=== PATIENT | male | born 1965 | race African-American/Black ===

== ENCOUNTER 2024-04-12 03:15 | Observation (INO) ==
--- NOTE | 2024-04-12 03:41 | ED.PDOC ---
General ED Provider: Dr. MARCO FLORES MD Chief Complaint: Shortness of Air Stated Complaint: Shortness of breath Time Seen by Provider: 04/12/24 03:29 Information Source: Patient Nursing and Triage Documentation Reviewed and Agree: Yes What is Opioid Naive?: *Opioid Naive implies the patient is not already taking opioids or not chronically receiving opioids on a daily basis. *PRN dosing is not "usually" associated with tolerance. *Patients are at higher risk of over-sedation and aspiration. What is Opioid Tolerant?: *Opioid Tolerance implies less than the expected response to an opioid. *Acquired tolerance is defined by the patient taking 60mg of oral morphine daily (or equianalgesic dose of another opioid) for 1 week or more. *Often associated with chronic pain. *May take more than usual dose to achieve desired pain control. Respiratory Complaint Exam Shortness of Air Complaint/Exam Onset/Duration: Yesterday Symptoms Are: Still present Timing: Constant Initial Severity: Moderate Current Severity: Moderate Character: Reports Dyspnea at rest Aggravating: Reports URI Associated Signs and Symptoms: Reports Cough, Chest pain with cough and Nasal congestion Differential Diagnoses: Pneumonia, SARS, RSV and URI Review of Systems Review Of Systems Constitutional: Reports No symptoms Eyes: Reports No symptoms Ears, Nose, Mouth, Throat: Reports Nose discharge Respiratory: Reports Cough and Shortness of Breath Cardiac: Reports No symptoms GI: Reports Abdominal pain, Nausea and Vomiting : Reports No symptoms Musculoskeletal: Reports No symptoms Skin: Reports No symptoms Neurological: Reports Headache Endocrine: Reports No symptoms Hematologic/Lymphatic: Reports No symptoms All Other Systems: Reviewed and Negative Physical Exam Physical Exam Appearance: Reports Well-appearing, No pain distress and Well-nourished Ill-appearing: None Pain Distress: None ENT: Reports Nose normal and Oropharynx normal Respiratory: Reports Airway patent, Breath sounds clear, Breath sounds equal and Respirations nonlabored Cardiovascular: Reports RRR, No rub and No murmur GI/: Reports Soft, Nontender and Bowel sounds normal Musculoskeletal: Reports Not Examined Skin: Reports Warm, Dry and Normal color Neurological: Reports Sensation intact, Cranial nerves intact, Alert and Oriented Psychiatric: Reports Affect appropriate and Mood appropriate Course Course 04/12/24 03:40 04/12/24 03:40 Orders, Labs, Meds: Lab Review 04/12/24 04/12/24 03:40 04:00 WBC 7.89 RBC 4.85 Hgb 14.7 Hct 46.1 MCV 95.1 H MCH 30.3 MCHC 31.9 RDW Coeff of Xavier 12.0 Plt Count 146 Immature Gran % (Auto) 0.3 Neut % (Auto) 85.3 H Lymph % (Auto) 4.7 L Hayes % (Auto) 9.5 Eos % (Auto) 0.1 Baso % (Auto) 0.1 Neut # (Auto) 6.7 Lymph # (Auto) 0.4 L [place] # (Auto) 0.8 Eos # (Auto) 0.0 Baso # (Auto) 0.0 Immature Gran # (Auto) 0.0 Sodium 135.8 Potassium 4.04 Chloride 101.9 Carbon Dioxide 23.4 Anion Gap 14.54 BUN 12.4 Creatinine 1.18 H Estimated GFR (MDRD) 77.00 BUN/Creatinine Ratio 10.50 Glucose 113.5 H Calcium 9.01 Total Bilirubin 1.25 AST 45.8 ALT 26.7 Alkaline Phosphatase 81.4 Total Protein 8.22 H Albumin 4.51 Globulin 3.71 Albumin/Globulin Ratio 1.21 Lipase 45.3 Urine Color Yellow Urine Clarity Clear Urine pH 5.5 Ur Specific [place] >=1.030 Urine Protein 2+ H Urine Glucose (UA) Negative Urine Ketones 1+ H Urine Blood 3+ H Urine Nitrite Negative Urine Bilirubin 1+ H Urine Urobilinogen 1.0 H Ur Leukocyte Esterase Negative Urine Microscopic RBC 5-10 Urine Microscopic WBC 0-2 Ur Squamous Epith Cells 0-2 Ur Transition Epith Cell 0-2 Urine Mucus 2+ Influ A Molecular Assay Positive by naat H Influ B Molecular Assay Negative by naat RSV Antigen Negative by naat SARS CoV-2 RNA Rapid KERI Negative Orders Category Date Time Status CBC W/ AUTO DIFF Stat LAB 04/12/24 03:40 Completed CMP [COMPREHENSIVE METABOLIC PANEL] Stat LAB 04/12/24 03:40 Completed COVID [SARS COV-2 RNA RAPID KERI] Stat LAB 04/12/24 03:40 Completed FLU A/B MOLECULAR Stat LAB 04/12/24 03:40 Completed LIPASE Stat LAB 04/12/24 03:40 Completed RSV Stat LAB 04/12/24 03:40 Completed URINALYSIS C & S IF INDICATED Stat LAB 04/12/24 04:00 Completed Ketorolac Tromethamine [Toradol] Meds 04/12/24 03:34 Discontinued 30 mg IM ONCE STA Ondansetron [Zofran Odt] Meds 04/12/24 03:34 Discontinued 4 mg PO ONCE STA CHEST, 1V AP ONLY Stat RADS 04/12/24 03:35 Completed Medications Discontinued Medications Generic Name Dose Route Start Last Admin Trade Name Aleksanderq PRN Reason Stop Dose Admin Ketorolac Tromethamine 30 mg 04/12/24 03:34 04/12/24 03:46 Ketorolac Tromethamine 30 Mg/Ml Vial IM 04/12/24 03:35 30 mg ONCE STA Administration Ondansetron HCl 4 mg 04/12/24 03:34 04/12/24 03:46 Ondansetron Hcl 4 Mg Tab.Rapdis PO 04/12/24 03:35 4 mg ONCE STA Administration Vital Signs: Temp Pulse Resp BP Pulse Ox O2 Flow Rate 04/12/24 03:31 2 04/12/24 03:17 98.5 F 107 H 19 161/109 H 93 L Discharge Plan Discharge Patient Disposition: ADMITTED INPATIENT Discharge Problem: Influenza A, Shortness of breath, Hypoxemia Did you review [place] BREAKFAST ATTENDANT for ALL controlled substances?: Not Applicable ED Provider: MARCO FLORES Condition: Stable Physician Progress Note: Patient here complaining of nausea vomiting, back pain, abdominal pain, productive cough, nasal congestion, headache and chest pressure from cough since yesterday. He took no medication. I ordered chest x-ray, COVID/influenza A/B/RSV swabs and CBC, CMP and lipase. I ordered IM Toradol for his back pain and Zofran for his nausea. Patient is positive for influenza A. Radiologist interpretation of chest x-ray follows: EXAM: PORTABLE CHEST HISTORY: Shortness of breath COMPARISON: Two-view chest 09/23/2023 FINDINGS: The cardiomediastinal silhouette is stable. The lungs are clear bilaterally. There are no acute osseous abnormalities. IMPRESSION:No evidence of active pulmonary disease or interval change Hey this is Dr. Flores in the ER I am a 59-year-old who came in with shortness of breath he tested positive for influenza A Patient is satting 88% on room air. He is on 2 L oxygen. I spoke to hospitalist and she agreed to admit him for observation. I reviewed results with patient and explained that he is being admitted to the hospital.
[2024-04-12] MEDS: ZOFRAN ODT PO STA (03:46)
[2024-04-12] MEDS: TORADOL IM STA (03:46)
[2024-04-12 03:49] LABS: BASOPHILS % (AUTO) 0.1 % (0.0-3.0); EOSINOPHILS % (AUTO) 0.1 % (0.0-7.0); HEMATOCRIT 46.1 % (42.0-52.0); HEMOGLOBIN 14.7 g/dl (14.0-18.0); IMMATURE GRANULOCYTE % (AUTO) 0.3 % (0.0-5.0); LYMPHOCYTES # (AUTO) 0.4 K/uL (0.60-3.4); LYMPHOCYTES % (AUTO) 4.7 (10.0-50.0); MEAN CORPUSCULAR HEMOGLOBIN 30.3 pg (27.0-31.0); MEAN CORPUSCULAR HGB CONC 31.9 (31.8-35.4); MEAN CORPUSCULAR VOLUME 95.1 fl (80.0-94.0); MONOCYTES # (AUTO) 0.8 K/uL (0.4-2.0); MONOCYTES % (AUTO) 9.5 (0-10); NEUTROPHILS # (AUTO) 6.7 K/ul (2.0-6.9); NEUTROPHILS % (AUTO) 85.3 % (42.2-75.2); PLATELET COUNT 146 10^3/uL (140-440); RED BLOOD COUNT 4.85 10^6/ul (4.70-6.10); WHITE BLOOD COUNT 7.89 K/ul (4.2-10.2)
[2024-04-12 04:01] LABS: ALANINE AMINOTRANSFERASE 26.7 U/L (0-50); ALBUMIN 4.51 g/dL (3.5-5.0); ALKALINE PHOSPHATASE 81.4 U/L (56-119); ASPARTATE AMINO TRANSFERASE 45.8 U/L (17-59); BILIRUBIN,TOTAL 1.25 mg/dL (0.2-1.3); BLOOD UREA NITROGEN 12.4 mg/dL (9-20); CALCIUM 9.01 mg/dL (8.4-10.2); CARBON DIOXIDE 23.4 mmol/L (22-30.0); CHLORIDE 101.9 mmol/L (98-107); CREATININE 1.18 mg/dL (0.60-1.10); GLUCOSE 113.5 mg/dL (74-106); LIPASE 45.3 U/L (23-300); POTASSIUM 4.04 mmol/L (3.5-5.1); SODIUM 135.8 mmol/L (134.5-145); TOTAL PROTEIN 8.22 g/dL (6.3-8.2)
[2024-04-12 04:11] LABS: BILIRUBIN,URINE 1+ (NEGATIVE); CLARITY,URINE Clear (CLEAR); COLOR,URINE Yellow (YELLOW); GLUCOSE, URINE (UA) Negative (NEGATIVE); KETONES,URINE 1+ (NEGATIVE); LEUKOCYTE ESTERASE ,URINE Negative (NEGATIVE); NITRITE,URINE Negative (NEGATIVE); PH,URINE 5.5 (5-9); PROTEIN,URINE 2+ (NEGATIVE); URINE, BLOOD 3+ (NEGATIVE)
[2024-04-12 04:12] LABS: MOLECULAR FLU A POSITIVE BY NAAT (NEGATIVE); MOLECULAR FLU B NEGATIVE BY NAAT (NEGATIVE); RSV MOLECULAR NEGATIVE BY NAAT (NEGATIVE); SARS COV-2 RNA RAPID NAAT NEGATIVE (NEGATIVE)
--- NOTE | 2024-04-12 04:17 | DI ---
EXAM: PORTABLE CHEST HISTORY: Shortness of breath COMPARISON: Two-view chest 09/23/2023 FINDINGS: The cardiomediastinal silhouette is stable. The lungs are clear bilaterally. There are n o acute osseous abnormalities. IMPRESSION: No evidence of active pulmonary disease or interval change
[2024-04-12 04:18] LABS: SQUAMOUS EPITHELIAL CELL,UR 0-2 (0-5); TRANSITIONAL EPI CELLS,URINE 0-2 (NOT PRESENT); URINE WBC, MICROSCOPIC 0-2 (0-2)
[2024-04-12 04:19] LABS: MUCUS,URINE 2+ (NOT PRESENT)
[2024-04-12] MEDS ORDERED: TYLENOL PO PRN (04:28)
[2024-04-12] MEDS: TAMIFLU CAPSULE PO ONE (04:38)
[2024-04-12 06:04] VITALS: BMI 21.4
[2024-04-12 09:12] LABS: CREATINE KINASE 680.1 U/L (55-170)
[2024-04-12 09:27] LABS: CREATINE KINASE MB 1.75 ng/ml (0.0-2.38)
[2024-04-12] MEDS ORDERED: ZOFRAN SDV IVP PRN (10:37)
--- NOTE | 2024-04-12 10:41 | PCM ---
Date of Service Date Seen by Provider: 04/12/24 Time Seen by Provider: 08:40 Admit Day/Time Admission Date: 04/12/24 Admission Time: 04:28 Reason for Admission Chief Complaint: INFLUENZA A, HYPOXEMIA Hospital Provider Hospital Provider: JUVE COWART PA-C, [facility] Primary Care Physician Primary Care Physician: None History of Present Illness History of Present Illness: Patient is a 59 year old smoker with no pcp who presented to ER with cc of sob and cough. Patient denies n/v/d, chest pain. States he started feeling bad yesterday. Tested positive for influenza A in ER. Was noted to be 88% on RA and was placed on 2L. CXR negative. Given tamiflu. Admitted to med surg. Case Discussed With Case Discussed With: Patient's case was discussed with the ER Physicians, Dr. Cali. [facility] Medical History COPD (chronic obstructive pulmonary disease) J44.9 - Chronic obstructive pulmonary disease, unspecified (ICD-10) Family History Mother CAD (coronary artery disease) of artery bypass graft Diabetes FATHER Prostate cancer Colon cancer Social History Smoking and tobacco status: Current every day smoker Tobacco: How many years used: 46 Quit status: not considering quitting Alcohol intake: current Alcohol intake frequency: a few times a month Details: Social and infrequent Substance use type: does not use Lives independently: Yes Number of children: 1 (daughter, lives in [place]) Allergies Allergies Allergy/AdvReac Type Severity Reaction Status Date / Time No Known Allergies Allergy Verified 04/12/24 03:21 Current Medications Home Medications 1 [No Reported Medications] 04/12/24 [History Confirmed 04/12/24 Last Taken Unknown] Home Acetaminophen (Acetaminophen 325 Mg Tablet) 650 mg PO Q4H PRN PRN Reason: Mild Pain Albuterol/Ipratropium (Ipratropium/Albuterol Vial.Neb) 3 ml NEB RTQ6H LOLIS Enoxaparin Sodium (Enoxaparin Sodium 40 Mg/0.4 Ml Syr) 40 mg SUBCUT DAILY LOLIS Ondansetron HCl (Ondansetron Hcl/Pf 4 Mg/2 Ml Sdv) 4 mg IVP Q6H PRN PRN Reason: Nausea / Vomiting Oseltamivir Phosphate (Oseltamivir Phosphate 75 Mg Capsule) 75 mg PO Q12HR [facility] Stop: 04/16/24 21:01 Discontinued Medications Ketorolac Tromethamine (Ketorolac Tromethamine 30 Mg/Ml Vial) 30 mg IM ONCE STA Stop: 04/12/24 03:35 Last Admin: 04/12/24 03:46 Dose: 30 mg Ondansetron HCl (Ondansetron Hcl 4 Mg Tab.Rapdis) 4 mg PO ONCE STA Stop: 04/12/24 03:35 Last Admin: 04/12/24 03:46 Dose: 4 mg Oseltamivir Phosphate (Oseltamivir Phosphate 75 Mg Capsule) 75 mg PO ONCE ONE Stop: 04/12/24 04:29 Last Admin: 04/12/24 04:38 Dose: 75 mg Opioid Naive vs. Tolerant Does Patient Take Opioids?: No Is Patient Opioid Naive?: Yes What is Opioid Naive?: *Opioid Naive implies the patient is not already taking opioids or not chron ically receiving opioids on a daily basis. *PRN dosing is not "usually" associated with tolerance. *Patients are at higher risk of over-sedation and aspiration. Is Patient Opioid Tolerant?: No What is Opioid Tolerant?: *Opioid Tolerance implies less than the expected response to an opioid. *Acquired tolerance is defined by the patient taking 60mg of oral morphine daily (or equianalgesic dose of another opioid) for 1 week or more. *Often associated with chronic pain. *May take more than usual dose to achieve desired pain control. Review of Systems Constitutional: Reports Fatigue; Denies Fever Head: Reports Normocephalic and Atraumatic Throat: Denies Sore Throat Cardiovascular: Denies Chest pain, Chest Pressure or Edema Respiratory: Reports Cough and Shortness of air Gastrointestinal: Denies Nausea, Vomiting, Diarrhea, Abdominal pain or Melena Genitourinary: Denies Dysuria or Hematuria Dermatologic: Reports Skin Changes (+RLE with scaling area on anterior martínez, x25-30 yrs per patient ) Neurological: Denies Headache, Dizziness or Syncope Physical examination Most Recent Vital Signs: Most Recent Vital Signs Temperature 99.1 F 04/12/24 05:05 Temperature Source Temporal Artery Scan 04/12/24 05:05 Temperature Source Infrared 04/12/24 03:17 Pulse Rate 98 04/12/24 05:05 Respiratory Rate 20 04/12/24 05:05 Blood Pressure 161/109 H 04/12/24 03:17 Blood Pressure Right Arm 95/75 04/12/24 05:05 Blood Pressure Position Supine 04/12/24 05:05 O2 Sat by Pulse Oximetry 91 L 04/12/24 05:05 Oxygen Delivery Method Nasal Cannula 04/12/24 09:56 Oxygen Flow Rate 2 04/12/24 05:05 Height 5 ft 10 in 04/12/24 05:05 Weight 68 kg 04/12/24 05:05 Telemetry Type Remote Telemetry 04/12/24 07:00 Telemetry Monitoring Continues 04/12/24 07:00 Telemetry Heart Rate 100 04/12/24 07:00 Telemetry SPO2 92 L 04/12/24 07:00 EKG [place] Interval 0.16 04/12/24 07:00 EKG QRS Interval 0.08 04/12/24 07:00 Telemetry Strip Reading NS 04/12/24 07:00 Appearance: Positive No Apparent Distress and Alert and Oriented x3 Skin: Positive [place], Warm, Good Turgor and Good Color HEENT: Positive Normocephalic and Atraumatic Neck: Positive Supple and Midline Trachea Chest/Lungs: Positive Clear to Auscultation Bilaterally; Negative Rales, Rhonci or Wheezes Heart: Positive RRR GI/: Positive Soft, Nontender, Bowel Sounds Normal and No Distention Extremities: Negative Edema Neurological: Positive Cranial Nerves Intact, Alert, Oriented and Muscle Strength 5/5 in Upper and Lower Extremities Bilaterally Psychiatric: Positive Oriented x4, Appropriate Mood and Appropriate Affect Labs This Visit Labs This Visit: Labs This Visit 04/12/24 04/12/24 03:40 04:00 WBC 7.89 RBC 4.85 Hgb 14.7 Hct 46.1 MCV 95.1 H MCH 30.3 MCHC 31.9 RDW Coeff of Xavier 12.0 Plt Count 146 Immature Gran % (Auto) 0.3 Neut % (Auto) 85.3 H Lymph % (Auto) 4.7 L [place] % (Auto) 9.5 Eos % (Auto) 0.1 Baso % (Auto) 0.1 Neut # (Auto) 6.7 Lymph # (Auto) 0.4 L [place] # (Auto) 0.8 Eos # (Auto) 0.0 Baso # (Auto) 0.0 Immature Gran # (Auto) 0.0 Sodium 135.8 Potassium 4.04 Chloride 101.9 Carbon Dioxide 23.4 Anion Gap 14.54 BUN 12.4 Creatinine 1.18 H Estimated GFR (MDRD) 77.00 BUN/Creatinine Ratio 10.50 Glucose 113.5 H Calcium 9.01 Total Bilirubin 1.25 AST 45.8 ALT 26.7 Alkaline Phosphatase 81.4 Total Creatine Kinase 680.1 H CK-MB (CK-2) 1.750 CK-MB (CK-2) % 0.2500 Total Protein 8.22 H Albumin 4.51 Globulin 3.71 Albumin/Globulin Ratio 1.21 Lipase 45.3 Urine Color Yellow Urine Clarity Clear Urine pH 5.5 Ur Specific [place] >=1.030 Urine Protein 2+ H Urine Glucose (UA) Negative Urine Ketones 1+ H Urine Blood 3+ H Urine Nitrite Negative Urine Bilirubin 1+ H Urine Urobilinogen 1.0 H Ur Leukocyte Esterase Negative Urine Microscopic RBC 5-10 Urine Microscopic WBC 0-2 Ur Squamous Epith Cells 0-2 Ur Transition Epith Cell 0-2 Urine Mucus 2+ Influ A Molecular Assay Positive by naat H Influ B Molecular Assay Negative by naat RSV Antigen Negative by naat SARS CoV-2 RNA Rapid KERI Negative Imaging Imaging: EXAM: PORTABLE CHEST HISTORY: Shortness of breath COMPARISON: Two-view chest 09/23/2023 FINDINGS: The cardiomediastinal silhouette is stable. The lungs are clear bilaterally. There are no acute osseous abnormalities. IMPRESSION: No evidence of active pulmonary disease or interval change Review Statement Review Statement: I have independently reviewed and interpreted the labs/EKGs/imaging that were ordered by the ER provider. I have reviewed all outside records that are available currently in our EMR including imaging/notes/labs from previous visits. Plan Plan: 1. Acute hypoxic respiratory failure in setting of influenza A- duonebs, conservative measures, wean O2 when able 2. Influenza A - within window for tamiflu, O2, conservative measures, isolation 3. Hematuria - 3+ blood on UA with a few RBCs. CPK mildly elevated but no overt rhabdo. Pt would benefit from pcp follow up to recheck. Due to being a smoker, need to follow up on hematuria. 4. Smoker - counseled. Declines patch. DVT Prophylaxis: Lovenox Time Spent: Greater than 80 minutes spent with patient, 50% of the time spent with this patient was devoted to counseling and coordination of care. [facility] minutes spent discussing advance care planning. Smoking Cessation: 3 minutes spent discussing smoking cessation. Admit to: Obs Discussed Plan of Care with Dr. Alan Dougherty. Medications Medication Orders: Medications Ordered Category Date Time Status Acetaminophen [Tylenol] Meds 04/12/24 10:37 Ordered 650 mg PO Q4H PRN Enoxaparin Sodium [Lovenox] Meds 04/13/24 09:00 Ordered 40 mg SUBCUT DAILY Ondansetron HCl/Pf [Zofran Sdv] Meds 04/12/24 10:37 Ordered 4 mg IVP Q6H PRN Oseltamivir Phosphate Capsule [Tamiflu Capsule] Meds 04/12/24 21:00 Ordered 75 mg PO Q12HR
[2024-04-12] MEDS: TUMS CHEWABLE PO PRN (11:18)
[2024-04-12] MEDS: MUCINEX PO SCH (12:30)
[2024-04-12] MEDS: TESSALON PERLES PO PRN (12:31)
[2024-04-12] MEDS: DUONEB NEB SCH (12:41)
[2024-04-12] MEDS: TYLENOL PO PRN (15:08)
[2024-04-12] MEDS: TAMIFLU CAPSULE PO SCH (20:47)
[2024-04-12] MEDS: TORADOL IVP ONE (21:02)
[2024-04-12] MEDS: BENADRYL PO ONE (22:37)
[2024-04-12] MEDS: SOLU-MEDROL 40 MG IVP ONE (22:38)
[2024-04-12] MEDS: LACTATED RINGERS 1,000 ML IV SCH (22:46)
[2024-04-13 06:22] LABS: BASOPHILS % (AUTO) 0.2 % (0.0-3.0); EOSINOPHILS % (AUTO) 0.2 % (0.0-7.0); HEMATOCRIT 46.9 % (42.0-52.0); HEMOGLOBIN 14.9 g/dl (14.0-18.0); IMMATURE GRANULOCYTE % (AUTO) 0.3 % (0.0-5.0); LYMPHOCYTES # (AUTO) 0.3 K/uL (0.60-3.4); LYMPHOCYTES % (AUTO) 4.6 (10.0-50.0); MEAN CORPUSCULAR HEMOGLOBIN 30.5 pg (27.0-31.0); MEAN CORPUSCULAR HGB CONC 31.8 (31.8-35.4); MEAN CORPUSCULAR VOLUME 95.9 fl (80.0-94.0); MONOCYTES # (AUTO) 0.1 K/uL (0.4-2.0); MONOCYTES % (AUTO) 1.9 (0-10); NEUTROPHILS % (AUTO) 92.8 % (42.2-75.2); PLATELET COUNT 132 10^3/uL (140-440); RDW COEFFICIENT OF VARIATION 12.2 % (11.6-14.8); RED BLOOD COUNT 4.89 10^6/ul (4.70-6.10); WHITE BLOOD COUNT 6.46 K/ul (4.2-10.2)
[2024-04-13 06:37] LABS: ALANINE AMINOTRANSFERASE 27.8 U/L (0-50); ALBUMIN 4.07 g/dL (3.5-5.0); ALKALINE PHOSPHATASE 64.3 U/L (56-119); ASPARTATE AMINO TRANSFERASE 68.1 U/L (17-59); BILIRUBIN,TOTAL 0.71 mg/dL (0.2-1.3); BLOOD UREA NITROGEN 19.4 mg/dL (9-20); CALCIUM 8.51 mg/dL (8.4-10.2); CARBON DIOXIDE 22.1 mmol/L (22-30.0); CHLORIDE 101.6 mmol/L (98-107); CREATININE 1.01 mg/dL (0.60-1.10); GLUCOSE 166.7 mg/dL (74-106); POTASSIUM 4.53 mmol/L (3.5-5.1); SODIUM 132.4 mmol/L (134.5-145); TOTAL PROTEIN 7.67 g/dL (6.3-8.2)
[2024-04-13] MEDS: TORADOL IM ONE (07:12)
[2024-04-13] MEDS: LOVENOX SUBCUT SCH (08:58)
--- NOTE | 2024-04-13 09:42 | PCM.PROG ---
Date/Time Seen Date Seen by Provider: 04/13/24 Provider Provider[facility] Johnson [facility] Chief Complaint Chief Complaint: INFLUENZA A, HYPOXEMIA Subjective Subjective: Developed itching and welts last night. New medications inclue toradol, mucinex, and tamiflu. No reported allergies. Patient states he is aching all over and doesn't feel better. RNs attempted to wean oxygen this am and sat dropped down into 80s on RA. Has not had BM in 3-4 days per patient and requesting medication. Objective Appearance: Positive No Apparent Distress, Alert and Oriented x3, Ill-Appearing and Thin Chest/Lungs: Positive Symmetrical With Equal Breath Sounds, Clear to Auscultation Bilaterally and Good Air Movement all 4 Lung Hannah Heart: Positive RRR and Pulses Normal GI/: Positive Soft, Nontender and Bowel Sounds Normal Musculoskeletal: Positive Not Examined Neurological: Positive Sensation Intact, Motor intact, Alert, Oriented and Other (generalized weakness) Vital Signs Vital Signs: Vital Signs: Last 24 Hours 04/12/24 09:56 04/12/24 10:00 04/12/24 11:00 Temperature 99.7 F Temperature Source Temporal Artery Scan Pulse Rate 90 Respiratory Rate 28 H Blood Pressure 133/95 H Blood Pressure Mean 107 Blood Pressure Location Left Arm Blood Pressure Position Supine O2 Sat by Pulse Oximetry 95 Oxygen Delivery Method Nasal Cannula Nasal Cannula Nasal Cannula Oxygen Flow Rate 2 Telemetry Type Telemetry Monitoring Telemetry Heart Rate EKG TX Interval EKG QRS Interval Telemetry Strip Reading 04/12/24 12:00 04/12/24 13:00 04/12/24 13:00 Temperature Temperature Source Pulse Rate Respiratory Rate Blood Pressure Blood Pressure Mean Blood Pressure Location Blood Pressure Position O2 Sat by Pulse Oximetry Oxygen Delivery Method Nasal Cannula Nasal Cannula Oxygen Flow Rate Telemetry Type Remote Telemetry Telemetry Monitoring Continues Telemetry Heart Rate 123 H EKG TX Interval 0.16 EKG QRS Interval 0.[address] 04/12/24 14:00 04/12/24 14:00 04/12/24 14:58 Temperature 102.1 F H Temperature Source Temporal Artery Scan Pulse Rate 101 H Respiratory Rate 24 H Blood Pressure 124/77 Blood Pressure Mean 92 Blood Pressure Location Right Arm Blood Pressure Position Supine O2 Sat by Pulse Oximetry 94 L Oxygen Delivery Method Nasal Cannula Nasal Cannula Nasal Cannula Oxygen Flow Rate 2 Telemetry Type Telemetry Monitoring Telemetry Heart Rate EKG TX Interval EKG QRS Interval Telemetry Strip Reading 04/12/24 16:00 04/12/24 16:24 04/12/24 17:00 Temperature Temperature Source Pulse Rate Respiratory Rate Blood Pressure Blood Pressure Mean Blood Pressure Location Blood Pressure Position O2 Sat by Pulse Oximetry 97 Oxygen Delivery Method Nasal Cannula Nasal Cannula Nasal Cannula Oxygen Flow Rate 2 Telemetry Type Telemetry Monitoring Telemetry Heart Rate EKG TX Interval EKG QRS Interval Telemetry Strip Reading 04/12/24 18:00 04/12/24 18:00 04/12/24 19:00 Temperature 100.7 F H Temperature Source Temporal Artery Scan Pulse Rate 89 Respiratory Rate 22 H Blood Pressure 122/86 Blood Pressure Mean 98 Blood Pressure Location Right Arm Blood Pressure Position Supine O2 Sat by Pulse Oximetry 93 L Oxygen Delivery Method Nasal Cannula Nasal Cannula Nasal Cannula Oxygen Flow Rate 2 Telemetry Type Telemetry Monitoring Telemetry Heart Rate EKG TX Interval EKG QRS Interval Telemetry Strip Reading 04/12/24 19:00 04/12/24 19:15 04/12/24 19:36 Temperature Temperature Source Pulse Rate Respiratory Rate Blood Pressure Blood Pressure Mean Blood Pressure Location Blood Pressure Position O2 Sat by Pulse Oximetry Oxygen Delivery Method Nasal Cannula Nasal Cannula Oxygen Flow Rate 2 Telemetry Type Remote Telemetry Telemetry Monitoring Continues Telemetry Heart Rate 90 EKG TX Interval 0.14 EKG QRS Interval 0.08 Telemetry Strip Reading NSR/pac's 04/12/24 19:58 04/12/24 20:00 04/12/24 21:17 Temperature 100.5 F H Temperature Source Tympanic Pulse Rate 97 Respiratory Rate 18 Blood Pressure 129/81 Blood Pressure Mean 97 Blood Pressure Location Left Arm Blood Pressure Position Supine O2 Sat by Pulse Oximetry 93 L Oxygen Delivery Method Nasal Cannula Room Air Nasal Cannula Oxygen Flow Rate Telemetry Type Telemetry Monitoring Telemetry Heart Rate EKG TX Interval EKG QRS Interval Telemetry Strip Reading 04/12/24 22:00 04/12/24 23:00 04/13/24 00:00 Temperature Temperature Source Pulse Rate Respiratory Rate Blood Pressure Blood Pressure Mean Blood Pressure Location Blood Pressure Position O2 Sat by Pulse Oximetry Oxygen Delivery Method Nasal Cannula Nasal Cannula Nasal Cannula Oxygen Flow Rate Telemetry Type Telemetry Monitoring Telemetry Heart Rate EKG TX Interval EKG QRS Interval Telemetry Strip Reading 04/13/24 00:58 04/13/24 01:00 04/13/24 02:00 Temperature Temperature Source Pulse Rate Respiratory Rate Blood Pressure Blood Pressure Mean Blood Pressure Location Blood Pressure Position O2 Sat by Pulse Oximetry Oxygen Delivery Method Nasal Cannula Nasal Cannula Oxygen Flow Rate Telemetry Type Remote Telemetry Telemetry Monitoring Continues Telemetry Heart Rate 86 EKG TX Interval 0.16 EKG QRS Interval 0.08 Telemetry Strip Reading NSR 04/13/24 02:00 04/13/24 03:00 04/13/24 04:00 Temperature 99.2 F Temperature Source Tympanic Pulse Rate 83 Respiratory Rate 17 Blood Pressure 127/73 Blood Pressure Mean 91 Blood Pressure Location Left Arm Blood Pressure Position Supine O2 Sat by Pulse Oximetry 92 L Oxygen Delivery Method Nasal Cannula Nasal Cannula Nasal Cannula Oxygen Flow Rate Telemetry Type Telemetry Monitoring Telemetry Heart Rate EKG TX Interval EKG QRS Interval Telemetry Strip Reading 04/13/24 05:00 04/13/24 05:26 04/13/24 05:27 Temperature 99.3 F Temperature Source Temporal Artery Scan Pulse Rate 86 Respiratory Rate 16 Blood Pressure 111/63 Blood Pressure Mean 79 Blood Pressure Location Left Arm Blood Pressure Position Supine O2 Sat by Pulse Oximetry 95 Oxygen Delivery Method Nasal Cannula Nasal Cannula Nasal Cannula Oxygen Flow Rate 1 2 Telemetry Type Telemetry Monitoring Telemetry Heart Rate EKG TX Interval EKG QRS Interval Telemetry Strip Reading 04/13/24 06:00 04/13/24 07:00 04/13/24 07:00 Temperature Temperature Source Pulse Rate Respiratory Rate Blood Pressure Blood Pressure Mean Blood Pressure Location Blood Pressure Position O2 Sat by Pulse Oximetry Oxygen Delivery Method Nasal Cannula Nasal Cannula Oxygen Flow Rate Telemetry Type Remote Telemetry Telemetry Monitoring Continues Telemetry Heart Rate 85 EKG TX Interval 0.16 EKG QRS Interval 0.06 Telemetry Strip Reading sr 04/13/24 08:00 Temperature Temperature Source Pulse Rate Respiratory Rate Blood Pressure Blood Pressure Mean Blood Pressure Location Blood Pressure Position O2 Sat by Pulse Oximetry Oxygen Delivery Method Nasal Cannula Oxygen Flow Rate Telemetry Type Telemetry Monitoring Telemetry Heart Rate EKG TX Interval EKG QRS Interval Telemetry Strip Reading Lab Results Lab Results: Lab Results: Last 24 Hours 04/13/24 06:14 WBC 6.46 RBC 4.89 Hgb 14.9 Hct 46.9 MCV 95.9 H MCH 30.5 MCHC 31.8 RDW Coeff of Xavier 12.2 Plt Count 132 L Immature Gran % (Auto) 0.3 Neut % (Auto) 92.8 H Lymph % (Auto) 4.6 L [place] % (Auto) 1.9 Eos % (Auto) 0.2 Baso % (Auto) 0.2 Neut # (Auto) 6.0 Lymph # (Auto) 0.3 L [place] # (Auto) 0.1 L Eos # (Auto) 0.0 Baso # (Auto) 0.0 Immature Gran # (Auto) 0.0 Sodium 132.4 L Potassium 4.53 Chloride 101.6 Carbon Dioxide 22.1 Anion Gap 13.23 BUN 19.4 Creatinine 1.01 Estimated GFR (MDRD) 92.00 BUN/Creatinine Ratio 19.20 Glucose 166.7 H Calcium 8.51 Total Bilirubin 0.71 AST 68.1 H ALT 27.8 Alkaline Phosphatase 64.3 Total Protein 7.67 Albumin 4.07 Globulin 3.60 Albumin/Globulin Ratio 1.13 Additional Comments Additional Comments: I have independently reviewed and interpreted the labs/EKGs/imaging ordered during this hospital stay. I have reviewed outside records that are available in our EMR that pertain to medical stay including imaging/notes/labs from previous visits. Active Medications Active Medications: Medications Generic Name Dose Route Start Last Admin Trade Name Freq PRN Reason Stop Dose Admin Acetaminophen 650 mg 04/12/24 10:37 04/12/24 15:08 Acetaminophen 325 Mg Tablet PO 650 mg Q4H PRN Administration Mild Pain Albuterol/Ipratropium 3 ml 04/12/24 12:00 04/13/24 05:36 Ipratropium/Albuterol Vial.Neb NEB Not Given RTQ6H LOLIS Benzonatate 100 mg 04/12/24 11:53 04/12/24 12:31 Benzonatate 100 Mg Capsule PO 100 mg TID PRN Administration Cough Calcium Carbonate/Glycine 1,000 mg 04/12/24 10:59 04/12/24 11:18 Calcium Carbonate 500 Mg Tab.Chew PO 1,000 mg Q6H PRN Administration Heartburn Enoxaparin Sodium 40 mg 04/13/24 09:00 04/13/24 08:58 Enoxaparin Sodium 40 Mg/0.4 Ml Syr SUBCUT Not Given DAILY LOLIS Guaifenesin 600 mg 04/12/24 11:55 04/12/24 20:47 Guaifenesin 600 Mg Tablet.Er PO 600 mg Q12HR LOLIS Administration Lactated Ringer's 1,000 mls @ 75 mls/hr 04/12/24 23:00 04/12/24 22:46 Lactated Ringers IV 75 mls/hr .[id number] LOLIS Administration Ondansetron HCl 4 mg 04/12/24 10:37 Ondansetron Hcl/Pf 4 Mg/2 Ml Sdv IVP Q6H PRN Nausea / Vomiting Oseltamivir Phosphate 75 mg 04/12/24 21:00 04/12/24 20:47 Oseltamivir Phosphate 75 Mg Capsule PO 75 mg Q12HR LOLIS Administration Plan Plan: 1. Acute hypoxic respiratory failure in setting of influenza A - duonebs, cons ervative measures, wean O2 when able 2. Influenza A - stopped tamiflu due to allergic rxn, O2, conservative measures, isolation 3. Hematuria - 3+ blood on UA with a few RBCs. CPK mildly elevated but no overt rhabdo. Pt would benefit from pcp follow up to recheck. Due to being a smoker, need to follow up on hematuria. 4. Smoker - counseled. Declines patch. DVT Prophylaxis: Lovenox Review Statement Review Statement: I have personally discussed and reviewed the patient's visit/currently labs/imaging/decision making with Dr. Dougherty, my supervising attending. Greater that 50 minutes spent with patient, 50% of the time spent with this patient was devoted to counseling and coordination of care.
[2024-04-13] MEDS: COLACE PO PRN (13:54)
[2024-04-13] MEDS: DULCOLAX PO PRN (13:54)
[2024-04-13] MEDS: MIRALAX PO PRN (13:55)
[2024-04-13] MEDS: PEPCID IVP ONE (20:53)
[2024-04-13] MEDS: ATARAX PO PRN (20:54)
[2024-04-13] MEDS: PREDNISONE PO SCH (20:55)
[2024-04-14 06:06] LABS: BASOPHILS % (AUTO) 0.4 % (0.0-3.0); HEMATOCRIT 49.2 % (42.0-52.0); HEMOGLOBIN 16.1 g/dl (14.0-18.0); IMMATURE GRANULOCYTE % (AUTO) 0.2 % (0.0-5.0); LYMPHOCYTES # (AUTO) 0.7 K/uL (0.60-3.4); LYMPHOCYTES % (AUTO) 13.4 (10.0-50.0); MEAN CORPUSCULAR HEMOGLOBIN 31.4 pg (27.0-31.0); MEAN CORPUSCULAR HGB CONC 32.7 (31.8-35.4); MEAN CORPUSCULAR VOLUME 96.1 fl (80.0-94.0); MONOCYTES # (AUTO) 0.2 K/uL (0.4-2.0); MONOCYTES % (AUTO) 4.5 (0-10); NEUTROPHILS # (AUTO) 4.2 K/ul (2.0-6.9); NEUTROPHILS % (AUTO) 81.5 % (42.2-75.2); PLATELET COUNT 137 10^3/uL (140-440); RDW COEFFICIENT OF VARIATION 11.7 % (11.6-14.8); RED BLOOD COUNT 5.12 10^6/ul (4.70-6.10); WHITE BLOOD COUNT 5.15 K/ul (4.2-10.2)
[2024-04-14 06:17] LABS: ALANINE AMINOTRANSFERASE 26.6 U/L (0-50); ALBUMIN 4.19 g/dL (3.5-5.0); ASPARTATE AMINO TRANSFERASE 60.7 U/L (17-59); BILIRUBIN,TOTAL 0.62 mg/dL (0.2-1.3); BLOOD UREA NITROGEN 13.8 mg/dL (9-20); CALCIUM 8.63 mg/dL (8.4-10.2); CARBON DIOXIDE 28.7 mmol/L (22-30.0); CREATININE 1.02 mg/dL (0.60-1.10); GLUCOSE 128.1 mg/dL (74-106); POTASSIUM 5.23 mmol/L (3.5-5.1); SODIUM 134.1 mmol/L (134.5-145); TOTAL PROTEIN 7.91 g/dL (6.3-8.2)
[2024-04-14 10:41] VITALS: BP 110/73; PULSE 85; RESP 24; TEMP 98.9
--- NOTE | 2024-04-14 11:59 | DCSUM ---
Admission Date Admission Date: 04/12/24 Discharge Date Discharge Date: 04/14/24 Admission Diagnosis Admission Diagnosis: 1. Acute hypoxic respiratory failure in setting of influenza A 2. Influenza A 3. Hematuria Discharge Diagnosis Discharge Diagnosis: 1. Acute hypoxic respiratory failure in setting of influenza A - Resolved 2. Influenza A - Improving 3. Hematuria - Recommended follow-up with urology, patient declined need for PCP or other providers 4. Smoker Hospital Provider Hospital Provider: PATTI PENG, [facility] Summary of History and Physical Summary of History and Physical: Patient is a 59 year old smoker with no pcp who presented to ER with cc of sob and cough. Patient denies n/v/d, chest pain. States he started feeling bad yesterday. Tested positive for influenza A in ER. Was noted to be 88% on RA and was placed on 2L. CXR negative. Given tamiflu. Admitted to med surg. Hospital Course Subjective: Patient initially was requiring 2L via NC. He was able to be started on tamiflu for influenza A however he developed hives/welps and itching on initial night of admission. Tamiflu, mucinex, and toradol were all given prior to hives. All 3 medications were stopped and not continued. He was given steroids and Benadryl initially. Second episode of hives occurred last night. Given steroids, hydroxyzine, and pepcid. Likely due to contact dermatitis from sheets, no other medications given. He was able to be weaned off oxygen this am and O2 sat remained above 94%. Patient highly aggravated about being discharged. Discussed extensively that there is no further treatment being given here at this time that he cannot continue at home. Verbalized understanding and requesting narcotic pain medications for body aches due to being "broke and don't have no job". Discussed that this is not an appropriate treatment and recommended tylenol and ibuprofen. Of note, hematuria noted on UA. CPK mildly elevated but no overt rhabdo. Pt would benefit from pcp follow up to recheck. Due to being a smoker, need to follow up on hematuria. However, patient refused PCP or any other providers and will go to "whoever he wants when he wants". D/c with prednisone and duoneb Appearance: Pleasant, No Apparent Distress and Alert HEENT: MMM, Supple and No JVD CVS: No Murmur, No Rubs and No Gallop Abdomen: Soft, Non-Tender and No Distention Respiratory: No Dyspnea Extremities: No Edema Vital Signs: Most Recent Vital Signs Temperature 98.9 F 04/14/24 10:00 Temperature Source Temporal Artery Scan 04/14/24 10:00 Temperature Source Infrared 04/12/24 03:17 Pulse Rate 85 04/14/24 10:00 Respiratory Rate 24 H 04/14/24 10:00 Blood Pressure 110/73 04/14/24 10:00 Blood Pressure Mean 85 04/14/24 10:00 Blood Pressure Right Arm 95/75 04/12/24 05:05 Blood Pressure Location Right Arm 04/14/24 10:00 Blood Pressure Position Supine 04/14/24 05:31 O2 Sat by Pulse Oximetry 96 04/14/24 10:30 Oxygen Delivery Method Nasal Cannula 04/14/24 10:53 Oxygen Flow Rate 0.5 04/14/24 10:30 Height 5 ft 10 in 04/12/24 05:05 Weight 68 kg 04/12/24 05:05 Telemetry Type Remote Telemetry 04/14/24 07:00 Telemetry Monitoring Continues 04/14/24 01:00 Telemetry Heart Rate 79 04/14/24 07:00 Telemetry SPO2 86 L 04/14/24 07:00 EKG LA Interval 0.14 04/14/24 07:00 EKG QRS Interval 0.08 04/14/24 07:00 Telemetry Strip Reading NSR and once O2 n/c re-applied @ 1 l/m, SPO2 increased to 96% 04/14/24 07:00 Imaging: EXAM: PORTABLE CHEST FINDINGS: The cardiomediastinal silhouette is stable. The lungs are clear bilaterally. There are no acute osseous abnormalities. IMPRESSION: No evidence of active pulmonary disease or interval change Lab Results Last 24 Hours: 04/14/24 05:34 WBC 5.15 RBC 5.12 Hgb 16.1 Hct 49.2 MCV 96.1 H MCH 31.4 H MCHC 32.7 RDW Coeff of Xavier 11.7 Plt Count 137 L Immature Gran % (Auto) 0.2 Neut % (Auto) 81.5 H Lymph % (Auto) 13.4 [place] % (Auto) 4.5 Eos % (Auto) 0.0 Baso % (Auto) 0.4 Neut # (Auto) 4.2 Lymph # (Auto) 0.7 [place] # (Auto) 0.2 L Eos # (Auto) 0.0 Baso # (Auto) 0.0 Immature Gran # (Auto) 0.0 Sodium 134.1 L Potassium 5.23 H Chloride 101.0 Carbon Dioxide 28.7 Anion Gap 9.63 BUN 13.8 Creatinine 1.02 Estimated GFR (MDRD) 91.00 BUN/Creatinine Ratio 13.52 Glucose 128.1 H Calcium 8.63 Total Bilirubin 0.62 AST 60.7 H ALT 26.6 Alkaline Phosphatase 73.0 Total Protein 7.91 Albumin 4.19 Globulin 3.72 Albumin/Globulin Ratio 1.12 Discharge Instructions Discharge Planning: Discharge Planning > 40 minutes If patient is discharged with left ventricular systolic dysfunction: NA Discharged with a beta deion? [] If no, why not? [] Discharged with an bushra/arb? [] If no, why not? [] Diagnosis: Influenza A Diet: Regular Activity: as tolerated Medications: [employer] [facility] Prednisone, Duoneb Discharge Medications: Medications at Discharge (Home Meds & RX) ipratropium 0.5 mg-albuterol 3 mg (2.5 mg base)/3 mL nebulization soln 3 ml NEB Q4-6H PRN shortness of breath or wheezing #90 mL 04/14/24 prednisone 5 mg tablets in a dose pack 5 mg PO DIRECTED #21 ea 04/14/24 Discharge Plan Discharge Discharge Orders: Discharge Patient (ONCE); Ordered 04/14/24 Ordered By: JUNI RIVERA Activity Restrictions/Additional Instructions: Diagnosis: Influenza A Diet: Regular Activity: as tolerated Medications: [employer] [facility] Instructions: Influenza (GEN), Hypoxia (GEN) Patient Disposition: HOME SELF-CARE Prescriptions: New ipratropium-albuterol 0.5 mg-3 mg(2.5 mg base)/3 mL Solution For Nebulization 3 ml NEB Q4-6H PRN (Reason: shortness of breath or wheezing) Qty: 90 0RF prednisone 5 mg tablets,dose pack 5 mg PO DIRECTED Qty: 21 0RF Rx Instructions: see taper instructions Did you review [place] [employer] for ALL controlled substances?: No Discussed opioids are addictive and Narcan is available by prescription or from pharmacy.: No Condition: Stable
== END 2024-04-14 12:40 | disposition home or self-care (01) ==
LOC: ED 03:15 → MEDSURG B 03:15
PROVIDERS: ADMIT Hospitalist; ATTEND Nurse Practitioner Family
DX: J96.01 Acute respiratory failure with hypoxia; R31.9 Hematuria, unspecified; F17.210 Nicotine dependence, cigarettes, uncomplicated; Z20.822 Contact with and (suspected) exposure to COVID-19; J11.1 Influenza due to unidentified influenza virus with other respiratory manifestations